=== PATIENT | female | born 1955 | race Caucasian/White ===

== ENCOUNTER 2021-06-10 11:41 | Day surgery (SDC) | payer OTHER, SELFPAY ==
[2021-06-08 09:47] VITALS: BMI 31.9
--- NOTE | 2021-06-08 14:01 | HP_ITS ---
DATE OF SERVICE: 06/10/2021 PREOPERATIVE DIAGNOSIS: Hallux abductovalgus deformity, right foot. PLANNED PROCEDURE: Right foot Precious bunionectomy. PAST MEDICAL HISTORY: Significant for anxiety, arthritis, hip, back, and knee pain, cataracts, headaches, migraines, hiatal hernia, high blood pressure, reflux, thyroid disease, numbness, measles, mumps, chickenpox, screws in teeth, peroneal neuropathy CURRENT MEDICATIONS: [place]adoo Thyroid 90 mg, pantoprazole sodium 20 mg, simvastatin, sertraline 100 mg, vitamin B12 500 mcg, verapamil 180 mg, zolpidem tartrate 10 mg, Nitro-Bid as needed, ibuprofen 800 mg as needed. PAST SURGICAL HISTORY: Hernia repair, hysterectomy, shoulder surgery,, and left foot Precious bunionectomy on 02/10/2021. FAMILY HISTORY: Heart disease, cancer, diabetes, hypertension. ALLERGIES: PENICILLIN AND ERYTHROMYCIN. SOCIAL HISTORY: The patient is a former smoker, current nonsmoker. Denies any illicit drug use. 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 She is single with no children. HOSPITALIZATIONS: Denied. REVIEW OF SYSTEMS: Within normal limits. HISTORY OF PRESENT ILLNESS: Reveals a 66-year-old female, presents with aching and tenderness of her right great toe joint present for several years, has been gradually getting progressively worse, pain with pressure, standing, and walking. Has tried rest, change in shoes and inner soles without any relief. PHYSICAL EXAMINATION: GENERAL: Reveals a pleasant, alert, well-nourished, well-developed, well-hydrated individual, who demonstrates proper attention to body habitus, in no acute distress. She is oriented x3. NEUROLOGICAL EXAM: Reveals intact sensorium. Pain sensation is normal. Vibratory sensation is intact. Denies any anesthesias, paresthesias, or tingling. VASCULAR EXAM: DP and PT pulses are 3/4 bilaterally. Capillary refill is immediate to all digits. Skin temperature, hair growth, texture, elasticity, and turgor are all normal bilaterally. Pigmentation is normal. There is no edema. DERMATOLOGICAL EXAM: Reveals normal texture, elasticity, and turgor. There are no masses. Interspaces are clear. ORTHOPEDIC EXAM: Reveals a medially prominent first metatarsophalangeal joint with lateral tracking of the first metatarsophalangeal joint, which is reducible on the right foot. DIAGNOSTIC DATA: X-rays show normal bone and soft tissue density consistent with patient's age and sex. There is an increased first intermetatarsal angle and hallux abductus angle consistent with bunion deformity, hypertrophy of the dorsal and medial aspect of the first metatarsal head without subchondral cyst sesamoid position is about #3. PLAN: The patient is scheduled for surgery. Several types of bunion surgery were discussed with the patient including, but not limited to modified Foster, Jairo, or Precious bunionectomy, shaft versus base wedge and Lapidus fusion. Discussed the risks of having surgery versus not having surgery and potential surgical complications including, but not limited to pain swelling, bleeding, scarring, numbness, infection, delayed or nonhealing, floppy, unstable or shortened toe, recurrence, failure of the procedure, over-correction, may need to plantar flex downward position or upward position of toe, recurrence, need for further surgery, as well as loss of toe, foot, life, or limb. Discussed use of local and IV anesthesia and the usual postoperative course. No guarantees were given. The patient indicated a full understanding of the above conversation. Questions were answered to their satisfaction. We decided on performing a Precious bunionectomy through the right foot based on the patient's complaints, medical and social history, physical exam, and x-ray analysis. The patient would like to proceed with surgical treatment. She will obtain preoperative labs as well as medical clearance for surgery and anesthesia. She is made aware to stop any and all blood thinners including [id number] fish oil and [id number] aspirin at least 1 week prior to surgery and made aware that driving may not be allowed during a portion of the postoperative period. She is not to utilize smoking tobacco products. The patient states she has Percocet left over from her previous left foot surgery. Therefore, she does not need another prescription for pain medication. The patient will be partial weightbearing to the right foot and cast boot or surgical shoe with crutches. The patient will follow up in my office for all postoperative followup care. Yvonne Dye DPM LP/MODESTA / [id number] ANIKET
--- NOTE | 2021-06-09 09:27 | HO.ANESPROP2 ---
Documented by User: Liya Garcia NP 06/09/21 09:28 HPI - Anesthesia Eval Consult details Narrative: 66yo F for Right Precious Bunionectomy PCP [facility] Past Medical History Medical History Anxiety Depression Disorder of iron metabolism Elevated cholesterol Fatty liver GERD (gastroesophageal reflux disease) Hiatal hernia History of benign brain tumor History of esophageal stricture Hx of renal calculi Hypothyroid Insomnia Migraines Neuropathy Osteoarthritis Personal history of subdural hematoma Sleep apnea Trochanteric bursitis of left hip Surgical History Surgical History History of bunionectomy of left great toe History of esophagogastroduodenoscopy (EGD) History of excision of pilonidal cyst History of hysterectomy History of repair of hiatal hernia Hx of colonoscopy Hx of hernia repair Social History Social History Patient Tobacco Use Status: Former Tobacco user Quit Date: years ago Use of substances other than those prescribed or required for medical reasons: No Are you DNR?: No Advance Directives: No Advance Directives Information Provided: Yes (mailed) Advance Directives on File: No Recently lost weight without trying: No Meds Allergies Allergy/AdvReac Type Severity Reaction Status Date / Time ampicillin [AMPICILLIN] Allergy Intermediate RASH Verified 06/10/21 11:50 clindamycin [CLINDAMYCIN] Allergy Intermediate RASH Verified 06/10/21 11:50 erythromycin base Allergy Intermediate RASH Verified 06/10/21 11:50 [ERYTHROMYCIN BASE] Penicillins Allergy Intermediate Rash Verified 06/10/21 11:50 tetracycline [TETRACYCLINE] Allergy Intermediate RASH Verified 06/10/21 11:50 Home Medications Medication Instructions Recorded Confirmed Last Taken Type Treximet PRN 06/08/21 06/08/21 Unknown History Tums BEDTIME 06/08/21 Unknown History atorvastatin 20 mg tablet 1 tab PO BEDTIME 06/08/21 06/08/21 Unknown History pantoprazole 40 mg tablet,delayed 1 tab PO BID 06/08/21 06/08/21 06/10/21 04:30 History release sertraline 100 mg tablet 1 tab PO DAILY@1700 06/08/21 06/08/21 Unknown History sertraline 25 mg tablet 1 tab PO DAILY@1700 06/08/21 06/08/21 Unknown History thyroid (pork) 30 mg tablet 3 tab PO DAILY 06/08/21 06/08/21 06/10/21 04:30 History ([employer] Thyroid) verapamil 180 mg tablet,extended 1 tab PO BEDTIME 06/08/21 06/08/21 Unknown History release zolpidem 5 mg tablet 10 mg PO BEDTIME 06/08/21 06/08/21 Unknown History Exam Exam Date and Time: June 09, [id number] Height,Weight and Vital Signs: Height 5 ft 7 in Weight 92.533 kg Assessment and Plan Assessment Anesthesia Assessment: Chart Reviewed Documented by User: Carole Larsen MD 06/10/21 12:34 [facility] Past Medical History Medical History Anxiety Depression Disorder of iron metabolism Elevated cholesterol Fatty liver GERD (gastroesophageal reflux disease) Hiatal hernia History of benign brain tumor History of esophageal stricture Hx of renal calculi Hypothyroid Insomnia Migraines Neuropathy Osteoarthritis Personal history of subdural hematoma Sleep apnea Trochanteric bursitis of left hip Functional capacity: independent ambulation Patient : No Family History Family history of problems with anesthesia: No Surgical History Surgical History History of bunionectomy of left great toe History of esophagogastroduodenoscopy (EGD) History of excision of pilonidal cyst History of hysterectomy History of repair of hiatal hernia Hx of colonoscopy Hx of hernia repair Social History Social History Patient Tobacco Use Status: Former Tobacco user Quit Date: years ago Use of substances other than those prescribed or required for medical reasons: No Are you DNR?: No Advance Directives: No Advance Directives Information Provided: Yes (mailed) Advance Directives on File: No Recently lost weight without trying: No Meds Allergies Allergy/AdvReac Type Severity Reaction Status Date / Time ampicillin [AMPICILLIN] Allergy Intermediate RASH Verified 06/10/21 11:50 clindamycin [CLINDAMYCIN] Allergy Intermediate RASH Verified 06/10/21 11:50 erythromycin base Allergy Intermediate RASH Verified 06/10/21 11:50 [ERYTHROMYCIN BASE] Penicillins Allergy Intermediate Rash Verified 06/10/21 11:50 tetracycline [TETRACYCLINE] Allergy Intermediate RASH Verified 06/10/21 11:50 Home Medications Medication Instructions Recorded Confirmed Last Taken Type Treximet PRN 06/08/21 06/08/21 Unknown History Tums BEDTIME 06/08/21 Unknown History atorvastatin 20 mg tablet 1 tab PO BEDTIME 06/08/21 06/08/21 Unknown History pantoprazole 40 mg tablet,delayed 1 tab PO BID 06/08/21 06/08/21 06/10/21 04:30 History release sertraline 100 mg tablet 1 tab PO DAILY@1700 06/08/21 06/08/21 Unknown History sertraline 25 mg tablet 1 tab PO DAILY@1700 06/08/21 06/08/21 Unknown History thyroid (pork) 30 mg tablet 3 tab PO DAILY 06/08/21 06/08/21 06/10/21 04:30 History ([employer] Thyroid) verapamil 180 mg tablet,extended 1 tab PO BEDTIME 06/08/21 06/08/21 Unknown History release zolpidem 5 mg tablet 10 mg PO BEDTIME 06/08/21 06/08/21 Unknown History Exam Airway Mallampati Class: II TM Dist: >3cm Neck ROM: Full Heart: RRR Lungs: CTA Assessment and Plan Final Anesthetic Review Family History of Problems with Anesthesia: No
[2021-06-10] VITALS (7 sets, daily range): BP systolic 122–152; BP diastolic 61–90; PULSE 68–77; RESP 16–18; TEMP 36.2–36.6; O2SAT 96–97
[2021-06-10] MEDS: vancomycin HCL 1,500 MG in 0.9 % Sodium Chloride 500 ML 333.33 MG IV (12:30)
[2021-06-10] MEDS: Lactated Ringers 1,000 ML 100 ML IVCONT (12:32)
--- NOTE | 2021-06-10 13:06 | MHC.SHP ---
Pre-Procedural Eval Section A Date of Service: 06/10/21 The patient is an INPATIENT: No Changes since office visit: No Cold of Flu in the past 2 weeks, No New Medical Problems, No Changes in Medication and No Patient answered all questions The History & Physical has been completed within 30 days and I have reviewed it.: Yes Section B Chief Complaint: hallux valgus right foot Allergies: Allergies Allergy/AdvReac Type Severity Reaction Status Date / Time ampicillin [AMPICILLIN] Allergy Intermediate RASH Verified 06/10/21 11:50 clindamycin [CLINDAMYCIN] Allergy Intermediate RASH Verified 06/10/21 11:50 erythromycin base Allergy Intermediate RASH Verified 06/10/21 11:50 [ERYTHROMYCIN BASE] Penicillins Allergy Intermediate Rash Verified 06/10/21 11:50 tetracycline [TETRACYCLINE] Allergy Intermediate RASH Verified 06/10/21 11:50 Plan I have reviewed the history and physical and performed a pertinent physical examination on my patient. No changes have occurred unless specified.
--- NOTE | 2021-06-10 13:52 | P.BOP_ITS ---
Brief Operative Note Date of Service: 06/10/21 Pre-op diagnosis: Hallux Valgus right foot Post-op diagnosis: same Procedure: Right foot Precious bunionectomy Implants: 2 Darlin 3-0 asnis screws Surgeon: Yvonne Dye Anesthesia: MAC and local Was an Mattress Stuffer used for this Procedure?: Yes Mattress Stuffer: Benny Hi Estimated blood loss (mL): 5 Tourniquet time (min): 21 Pathology: other Condition: stable Disposition: PACU
--- NOTE | 2021-06-15 11:23 | OP_ITS ---
SURGEON: Yvonne Dye DPM PREOPERATIVE DIAGNOSIS: Hallux abductovalgus deformity, right foot. POSTOPERATIVE DIAGNOSIS: Hallux abductovalgus deformity, right foot PROCEDURE PERFORMED: Right foot Precious bunionectomy. ESTIMATED BLOOD LOSS: Less than 5 mL. COMPLICATIONS: None. ANESTHESIA: Monitored anesthetic care with local consisting preoperatively of 2% lidocaine plain and 0.5% Marcaine plain, 18 mL in a 1:1 mix. ASSISTANTS: Benny Hi DPM. SPECIMENS: Bone right foot HEMOSTASIS: Pneumatic ankle tourniquet set at 225 mmHg for 21 minutes. INDICATIONS FOR SURGERY: The patient had painful bunion deformity noted to the right foot that has been present for some time. The patient has tried multiple conservative therapies without any success. The right foot bunionectomy surgery was discussed with the patient in great detail including risks, benefits, and possible complications. No guarantees were given and written and oral informed consent was obtained. DESCRIPTION OF PROCEDURE: The patient was brought into the operating room, placed on the operating table in the supine position. Vancomycin was administered as preoperative prophylactic antibiotic. The above-mentioned local anesthetic was anesthetized in a regional field block fashion and the right foot was scrubbed, prepped, and draped in a sterile manner. The right foot was exsanguinated and the pneumatic ankle tourniquet was inflated to 225 mmHg. Attention was directed to the right foot, the level of the 1st metatarsophalangeal joint where an incision was made. The incision was deepened down to subcutaneous tissue with great care being taken to retract vital neurovascular structures. All bleeders were cauterized as necessary. The incision was then deepened down and a medial capsulotomy was made, medial and parallel to the extensor tendons. The soft tissue was freed about the head of the first metatarsal and base of the proximal phalanx. Using power instrumentation, the medial aspect of the 1st metatarsal head was resected and passed from the operative site. Attention was then directed via the same incision to the 1st interspace where a lateral release was performed. The deep transverse intermetatarsal ligament, the fibular sesamoidal ligament, and head of the adductor tendon were transected allowing the 1st metatarsal head to drift into a more corrected position. Attention was directed back medially where V type osteotomy was created with the wings pointing plantarly proximally and dorsally proximally with the dorsal wing slightly extended. The capital fragment was then translocated laterally, impacted across the 1st metatarsal head and stabilized with two 3-0 Corder Asnis screws, 17 mm in length using standard AO technique. The remaining medial eminence was transected and passed from the operative site. The wound was irrigated with normal sterile saline. The capsular structures were reapproximated with 3-0 Vicryl in a continuous running fashion and the skin was reapproximated with 5-0 Monocryl in a continuous running fashion. Three nylon interrupted sutures with 4-0 nylon were placed as anchors. The zip line was then placed over the incision. The postoperative injection of 0.5% Marcaine plain and 1 mL of dexamethasone was administered. The foot was then dressed with Adaptic, Betadine-soaked gauze, 4x4s, fluffs, Kerlix, cast padding, and an Gonzalez bandage. The pneumatic ankle tourniquet was deflated and prompt capillary refill was noted to all 5 digits. The patient tolerated procedure and anesthesia well. She was transferred to the recovery room with vital signs stable and vascular status at preoperative levels. Following a period of postoperative recovery, the patient will be discharged home with written and oral postoperative instructions. The patient is to follow up in my office for all postoperative followup care. SANDY Gómez / [id number] MTDD
== END 2021-06-10 15:07 | disposition home or self-care (01) ==
PROVIDERS: PCP Family Medicine; Visit Provider Podiatrist
PROC: (CPT 28292; principal; 2021-06-10 12:50)
DX: M20.11 Hallux valgus (acquired), right foot (principal); M21.611 Bunion of right foot; I10 Essential (primary) hypertension; Z79.899 Other long term (current) drug therapy; Z88.0 Allergy status to penicillin; Z88.1 Allergy status to other antibiotic agents; Z87.891 Personal history of nicotine dependence
CPT/HCPCS: 28296; 88304; 88311; C1713; J1100; J2250; J3010; J3370